=== PATIENT | male | born 1980 | race Caucasian/White ===

== ENCOUNTER → 2016-11-04 | Outpatient (CLI) | payer BC | END | disposition home or self-care (01) | LOC: C.PATHSPEC 17:33 | PROVIDERS: ATTEND Urology | DX: Z30.2 Encounter for sterilization (principal) ==

== ENCOUNTER → 2016-12-14 | Outpatient (CLI) | payer BC ==
--- NOTE | 2016-12-14 15:18 | DIAGNOSTIC IMAGING REPORT ---
ULTRASOUND TESTES AND SCROTUM CLINICAL HISTORY: Testicular pain. COMPARISON STUDY: No priors. TECHNIQUE: Real-time, grayscale, and color Doppler sonography of the testes and scrotum is performed. Images are reviewed in the transverse and longitudinal planes. FINDINGS: The testes are normal in size and homogeneous in echotexture. The right testis measures 4.5 x 2.0 x 2.9 cm and the left testis measures 4.6 x 2.4 x 2.5 cm. No intratesticular mass is seen. Scattered microliths are incidentally noted. Testicular blood flow is normal and symmetric. Normal Doppler waveforms are identified in both testes. The epididymal heads are normal in appearance. The right epididymal head measures 1.4 cm in length and the left epididymal head measures 1.2 cm in length. No varicocele or hydrocele is seen. IMPRESSION: Unremarkable sonographic assessment of the testes and scrotum. Electronically signed by: Joshua Aggarwal M.D. 12/14/2016 3:16 PM Dictated Date/Time: 12/14/2016 3:15 PM
== END | disposition home or self-care (01) ==
LOC: C.ULTRBC 14:44
PROVIDERS: ATTEND Nurse Practitioner Adult Health
DX: N50.819 Testicular pain, unspecified (principal)